=== PATIENT | female | born 1965 | race Caucasian/White ===

== ENCOUNTER 2016-12-29 12:36 | Outpatient (CLI) | payer OTHER ==
--- NOTE | 2016-12-29 14:25 | ULT ---
LEFT DIAGNOSTIC MAMMOGRAM LEFT BREAST ULTRASOUND: Date: 12/29/16 COMPARISON: 10/08/16 and 03/25/16. HISTORY: Palpable mass in the upper outer aspect of the left breast. FINDINGS: ML, MLO, and CC views of the left breast show predominantly fatty replaced breast parenchyma. Benign appearing calcifications are seen in the left breast. There is no evidence of suspicious mass, susp icious cluster of microcalcifications, or area of architectural distortion. Interpretation of this mammogram was performed with the assistance of computer-aided detection. Targeted ultrasound of the upper outer aspect of the left breast shows normal appearing breast paren chyma. No suspicious masses or shadowing seen. IMPRESSION: BIRADS Category 2 - benign findings. Annual screening mammography is recommended. POS: [facility]
== END 2016-12-29 12:37 | disposition home or self-care (01) ==
LOC: MAMMO 12:36
PROVIDERS: ATTEND Family Medicine
DX: N63 Unspecified lump in breast (principal)
CPT/HCPCS: G0206-LT

== ENCOUNTER 2017-01-15 13:31 | Outpatient (CLI) | payer OTHER ==
--- NOTE | 2017-01-15 15:46 | MRI ---
MRI OF THE BRAIN WITHOUT AND WITH CONTRAST 01/15/17 COMPARISON: None. HISTORY: Left ear tinnitus for 11 months. Left ear hearing loss. TECHNIQUE: Multiplanar and multisequence MRI images were obtained of the brain without and with IV contrast. Th in cuts through the internal auditory canals are performed without and with contrast. IMPRESSION: There are a few scattered foci of high FLAIR signal in the periventricular white matter which are no nspecific. There is no restricted diffusion to suggest an acute infarction. There is no evidence of hydrocephalus, intracranial hemorrhage or extra-axial fluid collection. Thin cuts through the internal auditory canal shows a normal appearance of the 7th and 8th nerves. The cochlea and semicircular canal appear symmetric. The expected flow voids are present. No abnormal enhancement is seen on this examination. The corpus callosum, pituitary, and craniocervical junction are unremarkable. The calvarium and overlying soft tissues are unremarkable. the visualized paranasal sinuses and mast oid air cells are well aerated. IMPRESSION: No significant intracranial abnormality. POS: [facility]
== END 2017-01-15 13:32 | disposition home or self-care (01) ==
LOC: SCSMRI 13:31
PROVIDERS: ATTEND Otolaryngology Plastic Surgery within the Head & Neck
DX: H83.2X9 Labyrinthine dysfunction, unspecified ear (principal)
CPT/HCPCS: 70553

== ENCOUNTER 2017-05-17 13:31 | Emergency (ER) | payer OTHER ==
[~2017-05-17 13:31] MED LIST: Iopamidol 370 76% 100 ML VIAL ONE
[2017-05-17 14:04] LABS: #Basophils 0.1 thou/uL (0.0-0.2); #Lymphocytes 2.1 thou/uL (1.20-3.40); #Monocytes 0.4 thou/uL (0.11-0.59); #Neutrophils 3.6 thou/uL (1.40-6.50); %Basophils 1.2 % (0.0-1.0); %Eosinophils 0.7 % (0.0-10.0); %Lymphocytes 34.1 % (21.0-51.0); %Monocytes 5.6 % (0.0-10.0); %Neutrophils 58.3 % (42.0-75.0); Hemoglobin 13.7 g/dL (12.0-16.0); Mean Corpuscular HGB CONC 34.2 g/dL (32.0-36.0); Mean Corpuscular Volume 84.9 fl (81.0-99.0); Mean Platelet Volume 6.1 fL (7.4-10.4); Platelet Count 265 thou/uL (130-400); RBC Distribution Width 11.5 % (11.5-14.5); Red Blood Cell (RBC) Count 4.72 mill/uL (4.20-5.40); White Blood Cell (WBC) Count 6.2 thou/uL (4.8-10.8)
[2017-05-17] MEDS ORDERED: Ketorolac Tromethamine 30 MG/ML VIAL ONE ×2 (14:04→14:06)
[2017-05-17] MEDS ORDERED: Ondansetron HCl/PF 4 MG/2 ML Vial ONE (14:04)
[2017-05-17 14:18] LABS: ALT (SGPT) 23 U/L (8-55); AST (SGOT) 24 U/L (5-34); Albumin 5.1 g/dL (3.5-5.0); Alkaline Phosphatase 83 U/L (40-150); Anion Gap 16 mmol/L (10-20); BUN (Urea Nitrogen) 13 mg/dL (7.0-18.7); Bilirubin, Total 0.4 mg/dL (0.2-1.2); Calc. Creatinine Clearance 0 mL/min (70-130); Calcium 10.5 mg/dL (7.8-10.44); Carbon Dioxide 28 mmol/L (22-29); Chloride 100 mmol/L (98-107); Estimated GFR-MDRD 75; Globulin 2.8 g/dL (2.4-3.5); Glucose 99 mg/dL (70-105); Lipase 41 U/L (8-78); Potassium 3.6 mmol/L (3.5-5.1); Protein, Total 7.9 g/dL (6.0-8.3); Sodium 140 mmol/L (136-145)
--- NOTE | 2017-05-17 16:06 | CT ---
CT ABDOMEN AND PELVIS WITH IV AND ORAL CONTRAST: History: Right lower quadrant pain. FINDINGS: Lung bases are clear. Calcified granulomata are consistent with healed granulomatous disease. The dev er, kidneys, adrenal glands, and pancreas have a normal CT appearance. Appendix is not inflamed. Urin robe bladder is unremarkable. IMPRESSION: No significant abnormalities are demonstrated. POS: [facility]
[2017-05-17 16:37] LABS: Bilirubin Negative (Negative); Blood, Urine Negative (Negative); Clarity Clear (Clear); Glucose, Urine (Dipstick) Negative (Negative); Leukocyte Trace (Negative); Nitrite Negative (Negative); Protein, Urine (Dipstick) Negative (Neg-Trace); Urobilinogen 0.2 mg/dL (0.2-1.0); pH, Urine 6.5 (5.0-9.0)
[2017-05-17 16:39] LABS: Specific Gravity, Urine 1.008 (1.002-1.036)
[2017-05-17 16:45] LABS: Bacteria/HPF Rare-Few HPF (None Seen); RBC/HPF None Seen HPF (0-3); WBC/HPF 0-3 HPF (0-3)
== END 2017-05-17 17:03 | disposition home or self-care (01) ==
LOC: SCSER 13:31
DX: R10.31 Right lower quadrant pain (principal); Z79.899 Other long term (current) drug therapy
CPT/HCPCS: 74177; 80053; 81003; 81015; 83690; 85025; 87086; 94760; 96361; 96374; 96375; J1885; J2405

== ENCOUNTER 2018-03-31 15:55 | Outpatient (CLI) | payer OTHER | END 2018-03-31 15:56 | disposition home or self-care (01) | LOC: BICMAMMO 15:55 | PROVIDERS: ATTEND Family Medicine | DX: Z12.31 Encounter for screening mammogram for malignant neoplasm of breast (principal); Z80.3 Family history of malignant neoplasm of breast | CPT/HCPCS: 77063; 77067 ==

== ENCOUNTER 2019-04-03 13:52 | Outpatient (CLI) | payer BC ==
--- NOTE | 2019-04-03 16:22 | MMO ---
Bilateral MAMMO Bilat Screen [facility]. CLINICAL HISTORY: Patient is 54 years old and is seen for screening. The patient has no family history of breast cancer. The patient has no personal history of cancer. The patient has a history of Breast reduction in 2010. VIEWS: The views performed were: bilateral craniocaudal with tomosynthesis and bilateral mediolateral oblique with tomosynthesis. FILMS COMPARED: The present examination has been compared to a prior imaging study performed at [facility] on 03/31/2018. This study has been interpreted with the assistance of computer-aided detection. MAMMOGRAM FINDINGS: The breasts are almost entirely fat. There are no suspicious masses, suspicious calcifications, or new areas of architectural distortion. IMPRESSION: THERE IS NO MAMMOGRAPHIC EVIDENCE OF MALIGNANCY. A ROUTINE FOLLOW-UP MAMMOGRAM IN 1 YEAR IS RECOMMENDED. THE RESULTS OF THIS EXAM WERE SENT TO THE PATIENT. ACR BI-RADS Category 1 - Negative MAMMOGRAPHY NOTE: 1. A negative mammogram report should not delay a biopsy if a dominant of clinically suspicious mass is present. 2. Approximately 10% to 15% of breast cancers are not detected by mammography. 3. Adenosis and dense breasts may obscure an underlying neoplasm. Reported by: MARTHA RENEE MD Electonically Signed: [id number]
== END 2019-04-03 13:53 | disposition home or self-care (01) ==
LOC: BICMAMMO 13:52
PROVIDERS: ATTEND Family Medicine
DX: Z12.31 Encounter for screening mammogram for malignant neoplasm of breast (principal)
CPT/HCPCS: 77063; 77067

== ENCOUNTER 2021-02-03 10:45 | Outpatient (CLI) | payer BC ==
[2021-02-03] MEDS ORDERED: Magnevist 469MG/ML 20 ML VIAL ONE (13:47)
== END 2021-02-03 10:46 | disposition home or self-care (01) ==
LOC: BICMRI 10:45
PROVIDERS: ATTEND Nurse Practitioner Acute Care
DX: G43.009 Migraine without aura, not intractable, without status migrainosus (principal)
CPT/HCPCS: 70553; A9579

== ENCOUNTER 2021-09-11 13:23 | Outpatient (CLI) | payer BC | END 2021-09-11 13:24 | disposition home or self-care (01) | LOC: BICMAMMO 13:23 | PROVIDERS: ATTEND Family Medicine | DX: Z12.31 Encounter for screening mammogram for malignant neoplasm of breast (principal); Z98.890 Other specified postprocedural states; Z80.3 Family history of malignant neoplasm of breast | CPT/HCPCS: 77063; 77067 ==

== ENCOUNTER 2023-01-18 12:52 | Outpatient (CLI) | payer BC | END 2023-01-18 12:53 | disposition home or self-care (01) | LOC: BICMAMMO 12:52 | PROVIDERS: ATTEND Family Medicine | DX: Z12.31 Encounter for screening mammogram for malignant neoplasm of breast (principal); Z80.3 Family history of malignant neoplasm of breast | CPT/HCPCS: 77063; 77067 ==

== ENCOUNTER 2024-01-25 12:56 | Outpatient (CLI) | payer BC | END 2024-01-25 12:57 | disposition home or self-care (01) | LOC: BICRAD 12:56 | PROVIDERS: ATTEND Family Medicine | DX: R05.9 Cough, unspecified (principal) | CPT/HCPCS: 71046 ==

== ENCOUNTER 2024-05-26 15:40 | Outpatient (CLI) | payer BC | END 2024-05-26 15:41 | disposition home or self-care (01) | LOC: BICMAMMO 15:40 | PROVIDERS: ATTEND Family Medicine | DX: Z12.31 Encounter for screening mammogram for malignant neoplasm of breast (principal); Z80.3 Family history of malignant neoplasm of breast; Z98.890 Other specified postprocedural states | CPT/HCPCS: 77063; 77067 ==